=== PATIENT | male | born 1940 | race Caucasian/White ===

== ENCOUNTER 2020-07-26 11:03 | Outpatient (CLI) | payer MEDICARE, BC ==
[2020-07-26 12:04] LABS: Hemoglobin 11.3 g/dL (13.5-17.5); Mean Corpuscular HGB CONC 31.4 g/dL (32.0-36.0); Mean Corpuscular Hemoglobin 29.4 pg (27.0-33.0); Mean Corpuscular Volume 93.8 fl (81.2-95.1); Mean Platelet Volume 11.3 fl (7.4-10.4); Platelet Count 150 10x3/uL (150-450); RBC Distribution Width 16.5 % (11.5-14.5); Red Blood Cell (RBC) Count 3.84 10x6/uL (4.32-5.72); White Blood Cell (WBC) Count 4.5 10x3/uL (3.5-10.5)
[2020-07-26 12:35] LABS: PTT 25.5 sec (22.0-33.0); Prothrombin Time 10.9 sec (9.5-12.1)
[2020-07-26 12:48] LABS: Anion Gap 11 mmol/L (10-20); BUN (Urea Nitrogen) 29 mg/dL (8.4-25.7); Calc. Creatinine Clearance 0 mL/min (70-130); Calcium 9.2 mg/dL (7.8-10.44); Carbon Dioxide 26 mmol/L (23-31); Chloride 107 mmol/L (98-107); Glucose 96 mg/dL (83-110); Potassium 5.4 mmol/L (3.5-5.1); Sodium 139 mmol/L (136-145)
[2020-07-26 20:56] LABS: SARS-CoV-2 PCR by NAA Not Detected (NotDetected)
== END 2020-07-26 11:04 | disposition home or self-care (01) ==
LOC: LABBT 11:03
PROVIDERS: ATTEND Neurological Surgery
DX: Z01.812 Encounter for preprocedural laboratory examination (principal); M48.062 Spinal stenosis, lumbar region with neurogenic claudication; G95.9 Disease of spinal cord, unspecified; Z20.822 Contact with and (suspected) exposure to COVID-19
CPT/HCPCS: 80048; 85027; 85610; 85730; 93005; U0003; U0005; 87635; 93010

== ENCOUNTER 2020-07-30 06:15 | Inpatient (IN) | payer MEDICARE, BC ==
[2020-07-30] MEDS ORDERED: Bupivacaine PF 0.5% 30 ML VIAL ONE (06:19)
[2020-07-30] MEDS ORDERED: EPINEPHrine 1 MG/ML AMP ONE (06:19)
[2020-07-30] MEDS ORDERED: Bacitracin Zinc Ointment 30 gm TUBE ONE (06:20)
[2020-07-30] MEDS ORDERED: Thrombin 5000 UNITS/5 ML VIAL ONE ×2 (06:20)
[2020-07-30] MEDS ORDERED: Fentanyl 250 MCG/5 ML VIAL ONE (06:27)
[2020-07-30] MEDS ORDERED: Rocuronium Bromide 50 MG/5 ML VIAL ONE ×2 (06:45→06:58)
[2020-07-30] MEDS ORDERED: Dexmedetomidine 200 MCG/2 ML VIAL ONE (06:57)
[2020-07-30 07:17] LABS: Potassium 4.9 mmol/L (3.5-5.1)
[2020-07-30] MEDS ORDERED: Lidocaine 1% PF 5 ML VIAL ONE (07:45)
[2020-07-30] MEDS ORDERED: Rocuronium Bromide 10 MG/ML (10ML VIAL) ONE (07:45)
[2020-07-30] MEDS ORDERED: Dexamethasone 20 MG/5 ML VIAL ONE (07:45)
[2020-07-30] MEDS ORDERED: Glycopyrrolate 0.2 MG/ML 5 ML SYRINGE ONE (07:45)
[2020-07-30] MEDS ORDERED: Ondansetron PF 4 MG/2 ML Vial ONE (07:45)
[2020-07-30] MEDS ORDERED: PHENYLEPHRINE-NS 100 MCG/ML 10 ML SYRINGE ONE ×2 (07:45→08:05)
[2020-07-30] MEDS ORDERED: Phenylephrine 10 MG/ML VIAL ONE ×3 (08:05→12:34)
[2020-07-30] MEDS ORDERED: Acetaminophen 325 MG TAB PO PRN (13:51)
[2020-07-30] MEDS ORDERED: Mag-Al 1200 mg/1200 mg/30 ML UDCUP PO PRN (13:51)
[2020-07-30] MEDS ORDERED: diphenhydrAMINE 25 MG CAP PO PRN (13:51)
[2020-07-30] MEDS ORDERED: Promethazine 25 MG TAB PO PRN (13:51)
[2020-07-30] MEDS ORDERED: diphenhydrAMINE 50 MG/ML VIAL IVP PRN (13:51)
[2020-07-30] MEDS ORDERED: Promethazine HCl 12.5 MG SUPP PR PRN (13:51)
[2020-07-30] MEDS ORDERED: HYDROcodone/Acetaminophen 10/325 mg Tablet PO PRN ×2 (13:51)
[2020-07-30] MEDS ORDERED: tiZANidine HCl 4 MG TAB PO PRN (13:51)
[2020-07-30] MEDS ORDERED: Acetaminophen/Codeine 30-300mg Tablet PO PRN (13:51)
[2020-07-30] MEDS ORDERED: Ondansetron PF 4 MG/2 ML Vial IVP PRN (13:51)
[2020-07-30] MEDS ORDERED: Milk Of Magnesia 30 ML UDCUP PO PRN (13:51)
[2020-07-30] MEDS ORDERED: Prochlorperazine 10 MG/2 ML VIAL IM PRN (13:51)
[2020-07-30] MEDS ORDERED: Acetaminophen 650 MG Suppository PR PRN (13:51)
[2020-07-30] MEDS ORDERED: HYDROcodone/Acetaminophen 7.5/325 mg Tablet PO PRN (13:51)
[2020-07-30] MEDS ORDERED: Promethazine HCl 25 MG/ML VIAL IM PRN ×2 (13:51→14:11)
[2020-07-30] MEDS ORDERED: Bisacodyl 10 MG SUPP PR PRN (13:51)
[2020-07-30] MEDS ORDERED: HYDROmorphone 2 MG/ML VIAL SLOW IVP PRN (14:11)
[2020-07-30] MEDS ORDERED: Meperidine HCl/PF 25 MG/ML VIAL SLOW IVP PRN (14:11)
[2020-07-30] MEDS ORDERED: Ondansetron HCl/PF 4 MG/2 ML Vial IVP PRN (14:11)
[2020-07-30] MEDS ORDERED: Promethazine HCl 25 MG/ML VIAL SLOW IVP PRN (14:11)
[2020-07-30] MEDS ORDERED: Morphine Sulfate 2 MG/ML SYRINGE SLOW IVP PRN (14:11)
[2020-07-30] MEDS ORDERED: PACU-Morphine 4MG/ML VIAL SLOW IVP PRN (14:11)
[2020-07-30] MEDS ORDERED: Scopolamine 1.5 mg/72 hour Patch ONE (14:40)
[2020-07-30] MEDS ORDERED: Morphine 4 MG/ML VIAL SLOW IVP PRN (14:50)
[2020-07-30] MEDS ORDERED: Scopolamine 1.5 mg/72 hour Patch TD SCH (15:00)
[2020-07-30] MEDS: CEFAZOLIN 2 GM in Premix Bag 1 BAG IVPB SCH ×2 (15:12→23:26)
[2020-07-30] MEDS ORDERED: Fentanyl 100 MCG/2 ML VIAL ONE (15:33)
[2020-07-30] MEDS ORDERED: Tamsulosin HCl 0.4 MG CAP ONE (19:14)
[2020-07-30] MEDS ORDERED: Morphine 4 MG/ML VIAL ONE (19:17)
[2020-07-30] MEDS ORDERED: HYDROcodone/Acetaminophen 7.5/325 mg Tablet ONE (19:37)
[2020-07-30] MEDS: Sodium Chloride 0.9% 1,000 ML IV SCH (21:16)
[2020-07-30] MEDS: Acetaminophen/Codeine 30-300mg Tablet PO PRN (23:26)
[2020-07-31] MEDS: Sodium Chloride 0.9% 1,000 ML IV SCH ×2 (02:38→15:55)
[2020-07-31] MEDS: Acetaminophen/Codeine 30-300mg Tablet PO PRN ×3 (04:24→14:29)
[2020-07-31] MEDS: Tamsulosin HCl 0.4 MG CAP PO SCH (06:15)
[2020-07-31] MEDS ORDERED: STOOL SOFTNER PO PRN (07:33)
[2020-07-31] MEDS: CEFAZOLIN 2 GM in Premix Bag 1 BAG IVPB SCH (09:18)
[2020-07-31] MEDS: Cholecalciferol 1,000 UNITS (25 MCG) TAB PO SCH (09:42)
[2020-07-31] MEDS: Potassium Bicarbonate/Cit Ac 20 MEQ TAB PO SCH (09:43)
[2020-07-31] MEDS: Lactinex Tablet PO SCH (09:43)
[2020-07-31] MEDS: Multivitamin W/ Minerals 1 TAB PO SCH (09:43)
[2020-07-31] MEDS: Cyanocobalamin (Vitamin B-12) 1,000 MCG TAB PO SCH (09:48)
[2020-07-31] MEDS: Furosemide 40 MG TAB PO SCH (11:37)
[2020-07-31] MEDS: Carvedilol 6.25 MG TAB PO SCH ×2 (11:37→21:10)
[2020-07-31] MEDS: Dutasteride 0.5 MG CAP PO SCH (21:10)
[2020-07-31] MEDS: DULoxetine 60 MG CAP PO SCH (21:10)
[2020-07-31] MEDS: Magnesium Oxide 400 MG TAB PO SCH (21:10)
[2020-07-31] MEDS: Folic Acid 1 MG TAB PO SCH (21:10)
[2020-07-31] MEDS: Allopurinol 300 MG TAB PO SCH (21:10)
[2020-07-31] MEDS: Atorvastatin Calcium 20 MG TAB PO SCH (21:10)
[2020-07-31] MEDS: Pregabalin 50 MG CAP PO SCH (21:10)
[2020-07-31] MEDS: HYDROcodone/Acetaminophen 7.5/325 mg Tablet PO PRN (22:05)
[2020-08-01] MEDS: Tamsulosin HCl 0.4 MG CAP PO SCH (05:40)
[2020-08-01] MEDS: HYDROcodone/Acetaminophen 7.5/325 mg Tablet PO PRN (06:00)
[2020-08-01] MEDS: Sodium Chloride 0.9% 1,000 ML IV SCH ×2 (06:30→17:28)
[2020-08-01] MEDS: Carvedilol 6.25 MG TAB PO SCH ×2 (09:02→20:27)
[2020-08-01] MEDS: Cholecalciferol 1,000 UNITS (25 MCG) TAB PO SCH (09:02)
[2020-08-01] MEDS: Lactinex Tablet PO SCH (09:02)
[2020-08-01] MEDS: Potassium Bicarbonate/Cit Ac 20 MEQ TAB PO SCH (09:03)
[2020-08-01] MEDS: Furosemide 40 MG TAB PO SCH (09:03)
[2020-08-01] MEDS: Multivitamin W/ Minerals 1 TAB PO SCH (09:03)
[2020-08-01] MEDS: Cyanocobalamin (Vitamin B-12) 1,000 MCG TAB PO SCH (09:09)
[2020-08-01 09:36] LABS: Anion Gap 11 mmol/L (10-20); BUN (Urea Nitrogen) 18 mg/dL (8.4-25.7); Calc. Creatinine Clearance 0 mL/min (70-130); Calcium 8.6 mg/dL (7.8-10.44); Carbon Dioxide 25 mmol/L (23-31); Chloride 104 mmol/L (98-107); Glucose 135 mg/dL (83-110); Potassium 4.3 mmol/L (3.5-5.1); Sodium 136 mmol/L (136-145)
[2020-08-01 10:21] LABS: #Eosinphils 0.1 thou/uL (0.0-0.7); #Monocytes 0.6 thou/uL (0.11-0.59); #Neutrophils 8.7 thou/uL (1.40-6.50); %Eosinophils 1.4 % (0.0-10.0); %Lymphocytes 9.8 % (21.0-51.0); %Monocytes 5.6 % (0.0-10.0); %Neutrophils 83.2 % (42.0-75.0); Hemoglobin 9.7 g/dL (14.0-18.0); Mean Corpuscular Volume 96.9 fL (78.0-98.0); Mean Platelet Volume 9.1 fL (7.4-10.4); Platelet Count 107 thou/uL (130-400); Platelet Morphology Comment Appears Decreased; RBC Morphology Normal; Red Blood Cell (RBC) Count 3.03 mill/uL (4.70-6.10); White Blood Cell (WBC) Count 10.5 thou/uL (4.8-10.8)
[2020-08-01] MEDS: Acetaminophen/Codeine 30-300mg Tablet PO PRN ×3 (11:14→18:42)
[2020-08-01] MEDS: pyridOXINE 50 MG (B6) TAB PO SCH (11:31)
[2020-08-01] MEDS: TUMERIC PO SCH (11:31)
[2020-08-01] MEDS: Atorvastatin Calcium 20 MG TAB PO SCH (20:09)
[2020-08-01] MEDS: DULoxetine 60 MG CAP PO SCH (20:09)
[2020-08-01] MEDS: Magnesium Oxide 400 MG TAB PO SCH (20:09)
[2020-08-01] MEDS: Allopurinol 300 MG TAB PO SCH (20:09)
[2020-08-01] MEDS: Folic Acid 1 MG TAB PO SCH (20:10)
[2020-08-01] MEDS: Pregabalin 50 MG CAP PO SCH (20:10)
[2020-08-01] MEDS: Dutasteride 0.5 MG CAP PO SCH (20:11)
[2020-08-01 20:38] VITALS: TEMP 98.7
[2020-08-01 21:59] VITALS: BP 97/56
== END 2020-08-01 20:40 | DRG 472 ==
LOC: SUATTDRO 06:15 → SDC 06:15 → SURG A 13:51 → SDC 08-01 12:57 → SURG A 08-01 12:57
PROVIDERS: ADMIT Hospitalist; ATTEND Hospitalist
PROC: 0RG2071 Fusion of 2 or more Cervical Vertebral Joints with Autologous Tissue Substitute, Posterior Approach, Posterior Column, Open Approach (ICD-10-PCS; principal; 2020-07-30)
PROC: 00NW0ZZ Release Cervical Spinal Cord, Open Approach (ICD-10-PCS; 2020-07-30)
DX: M48.02 Spinal stenosis, cervical region (principal); G99.2 Myelopathy in diseases classified elsewhere; M40.202 Unspecified kyphosis, cervical region; Z20.822 Contact with and (suspected) exposure to COVID-19; M43.12 Spondylolisthesis, cervical region; M19.90 Unspecified osteoarthritis, unspecified site; G89.29 Other chronic pain; I25.10 Atherosclerotic heart disease of native coronary artery without angina pectoris; J44.9 Chronic obstructive pulmonary disease, unspecified; I10 Essential (primary) hypertension; M10.9 Gout, unspecified; Z79.02 Long term (current) use of antithrombotics/antiplatelets; Z87.891 Personal history of nicotine dependence; I25.2 Old myocardial infarction; Z79.899 Other long term (current) drug therapy; Z95.1 Presence of aortocoronary bypass graft; Z95.810 Presence of automatic (implantable) cardiac defibrillator; Z90.49 Acquired absence of other specified parts of digestive tract; Z99.81 Dependence on supplemental oxygen
CPT/HCPCS: 36415; 76000; 80048; 84132; 85025; C1713; C1768; J0171; J0690; J1100; J2270; J2370; J2405; J3010; J3370; J3490; S0020